=== PATIENT | male | born 1990 | race Caucasian/White ===

== ENCOUNTER 2019-05-12 08:54 | Emergency (ER) | payer OTHER ==
[2019-05-12] MEDS ORDERED: Lidocaine 1% w/Epinephrine 1:100K 30 ML VIAL ONE (09:21)
[2019-05-12] MEDS ORDERED: Lidocaine 1% (PF) 30 ML VIAL ONE (09:21)
[2019-05-12] MEDS ORDERED: Triple Antibiotic Oint 1 GM Packet ONE (10:12)
== END 2019-05-12 11:15 | disposition still patient (30) ==
LOC: NAV ERS 08:54
DX: S41.112A Laceration without foreign body of left upper arm, initial encounter (principal); W22.8XXA Striking against or struck by other objects, initial encounter
CPT/HCPCS: 12002; J2001